=== PATIENT | female | born 1975 | race Caucasian/White ===

== ENCOUNTER 2025-09-12 06:19 | Day surgery (SDC) | payer OTHER, SELFPAY ==
--- NOTE | 2025-09-01 10:52 | PM.GYNHP.1 ---
History of Present Illness History of Present Illness Narrative: Ely Barber is a 49 year old female Date of procedure:?? 09-12-25 Preoperative diagnosis:? stress incontinence rectocele st 2, BMI 49, 290 # Planned Procedure:?? mid urethral sling, cystoscopy post colporrhaphy Postop Meds Tylenol 1000 mg, ?3 times a day? Motrin 400 mg 600 mg (under age 65 yr) ,? 3 times a day Oycodone 5 mg,? take 1 pill every 4-6 hr as needed, # 15? Colace,? 1 pill BID, for constipation CC: Prolapse and incontinence HPI: 49-year-old female who presents for evaluation of above complaint.?? She reports onset of symptoms 10 years ago.?? She considers this a? Moderate? problem. She has multiple medical issues, as well as obesity with BMI 49, multiple prior surgeries, prior hysterectomy, 2 prior C-sections 1. Prolapse Regarding the prolapse, she reports a bulge that she feels, reports it comes to the introitus. She reports that she has to splint against the vagina for bowel movements. She desires surgery for the prolapse. Exam with no cystocele, no vaginal vault prolapse, stage II distal rectocele. She does have a history of IBS with constipation. Given that she has had no prior vaginal deliveries, it is possible that the straining from the constipation caused the rectocele that was seen on exam. That is notable because it increases her recurrence risk because she might continue to still need to strain. Clearly the rectocele was not attributable to a vaginal delivery. 2. Mixed stress and urge incontinence She reports stress incontinence that occurs 1 to 2 times a day, with triggers as listed below. She also reports urge incontinence that occurs 1 to 2 times a day with triggers as below. Sometimes she gets large leaks from the urge incontinence. She uses 2-3 diapers in the day and 1 at night. These are typically wet. Voids every 1-2 hours in the daytime, 1-2 times at night, severe urgency. She has had no treatment for the stress incontinence other than doing Kegel's. For the urge incontinence she has tried and failed medications in the past. She had an InterStim placed in 2007. Presently it is not working well and she is in the process of having her urologist we place the InterStim. Exam below demonstrates positive cough stress test indicating diagnosis of stress incontinence. She desires surgery for the stress incontinence. She declines overactive bladder medications prior hyst -yes -0 c-sec -x2 Pelvic Floor Review of Systems: (HPI) Stress Urinary Incontinence symptoms (ELISABETH): 1-2 per day Triggers include: Sneeze, laugh, exercise, while ? Urge Incontinence symptoms (Urge UI): 1-2 per day Triggers include: Full bladder with urge, running water ? Pads: She wears 2-3 diapers in the day, 1 at night Overactive Bladder symptoms (OAB):? ? Frequency:?? Every 1-2 hours Nocturia:?? Times 1-2 Urgency:?? Severe Prior incontinence treatment includes:? Medical:? Meds tried in the past Surgical:? InterStim 2018, no treatment for stress incontinence Kegels:?? Yes Physical therapy:?No? Pessary:?No? Diet / Fluids: Fluid restriction:? No Excessive fluids:?No Pain symptoms:? Painful bladder:???No Dysuria:??? No Dyspareunia: Yes, history of endometriosis was the reason for the hysterectomy Dysmenorrhea:? No Urinary Risk Factors UTI?s, recurrent:? No Hematuria:? No Kidney Stones:?No? Tobacco use:? No Pelvic Organ Prolapse (POP) symptoms:?? Bulge:?Yes Pressure and /or? Heaviness:?Yes Splint for defecation or voiding:???Yes Voiding dysfunction: Abnormal stream:? No Strain to void:? No Incomplete emptying:?No Voiding difficulty:? No Retention:??? No Bowel Function: Constipation:?Yes Strain to defecate:?Yes Fiber:?No Laxatives:?Yes Fecal Incontinence:? Liquid stool:? No Solid stool:?No?? Sexual function Sexually active: Yes Incontinence with sex:? No ? General Review of Systems: Constitutional, CV, Endo, Musc-skel, Eyes, Cancer, Skin, Breast, GI, Heme/Lymph, Psych, Urinary, Neuro, Multilith Operator, Resp, Sexual:??? Pertinent positives listed above in HPI All others reviewed and negative. All reviewed on patient questionnaire.? . . [facility] Allergies, cephalosporins, she reports anaphylaxis Citalopram, hives, , rash metoprolol, Raynaud's Medical history Post surgical menopause GERD Hypothyroid Polycystic ovarian syndrome TMJ pain syndrome, bruxism Recurrent nosebleeds History of endometriosis in the upper left lobe of lung, resolved Depression Anxiety IBS with constipation predominant Medications Estradiol patch 0.05 mg per 24 hours progesterone 100 mg Thyroid replacement , 120 mg Sertraline 200 mg Wellbutrin 150 mg Gabapentin 300 mg pantoprazole 40 mg Vitamin D3 As needed medicines include cyclobenzaprine, hydroxyzine, lidocaine patch, ProAir inhaler, Afrin nasal spray, melatonin, lactulose Past surgical history Right wrist ganglion cyst Dahlgren teeth Bilateral breast reduction ,, readmitted later with blood clots Right foot cyst Tonsillectomy Laparoscopy confirming endometriosis , 2008 laparoscopic hysterectomy with oophorectomy, 2009 Thyroidectomy 2010 Nasal surgery 2014 InterStim placement 2018 Cholecystectomy, 2019 Exam Vitals 07/12/2514:23 Height 5 ft 4 in Weight 290 lb BMI 49.8 BP 140/64 Blood Pressure Location Lt brachial Position Sitting General: healthy, alert, coherent, no acute distress, cooperative, nontoxic Pulmonary: normal breathing, no distress Abdomen: soft, no mass, non-distended, no hernia, non-tender 5 ft 4 in, 290 lb, body mass index 49.8 Vulva: Normal labia majora, labia minora, introitus, and clitoris, non-tender Urethra meatus: normal, no discharge Perineum: Normal, non-tender Urethra: No mass, non-tender Bladder: no mass, non-tender Vagina: No lesions, no discharge, no atrophy, non-tender Prolapse -no cystocele, no vaginal vault prolapse, rectocele only notable on rectovaginal exam Levators: Non-tender, 1/ 5 kegel squeeze Hysterectomy Bimanual: no mass, no adnexal mass, non-tender Anus: No lesion, non-tender, no hemorrhoid Empty Cough Stress test: Neg PVR: 20 mL by catheter Urethral angle hypermobile: Yes, mild POP-Q Exam: Aa: -2 Ba: -2 Ap: -0.5 Bp: -0.5 C: -8 D: Not applicable TVL: 9 GH: 3 PB: 3 Introitus size: X2 fingerbreadths Cystocele stage: Stage I Rectocele stage: Stage II Uterine/Vault Prolapse Stage: Stage 0 After the exam, we had a return about 45 minutes later to do urodynamics, simple, as below. Verbal consent for the urodynamics obtained. Urethra prepped with Betadine. Bladder filled by placing a Stuart catheter connected to a 60 cc syringe, and then filling with sterile saline 60 cc at a time PVR was 50 cc First sensation, 40 cc First urge, 250 cc Strong urge, 350 cc Bladder capacity 420 cc Positive cough stress test at bladder capacity No evidence of detrusor instability Patient given Bactrim to take after the procedure Assessment & Plan (1) Rectocele: Status: Acute (2) Urge incontinence: Status: Acute (3) Stress incontinence, female: Assessment and Plan ? Patient counseled regarding above conditions.? Educational materials given to patient. 1. Pelvic Organ Prolapse - Stage 2 rectocele, no other prolapse.? This diagnosis and its etiology was discussed with the patient.? Treatment options were discussed including: expectant management, pessary trial, and surgical intervention. We briefly discussed risks and benefits of surgery. All surgery for prolapse is not 100% successful and there is a chance of recurrence or failure. She declines a Pessary Trial for Prolapse she desires surgery my recommendation = posterior colporrhaphy see below for counseling 2. Stress Urinary Incontinence with urethral hypermobility:? This diagnosis was discussed with the patient. The etiology was explained. Treatment options were discussed including expectant management, pelvic floor exercises, pessary trial, and surgical intervention (mid-urethral sling, Bird urethropexy, P-V sling, Deisy urethral plication, urethral bulking injection).? Risks and benefits of surgery were briefly outlined. Diagnosis confirmed on today's visit We discussed that she is a candidate for a Midurethral Sling as treatment of her stress incontinence. Success rate of being dry from stress incontinence is about 80-85%; another 10-15% of patients are markedly improved but not cured;? 1-2% will fail, and 1-2% will need the sling cut because it is too tight.? The risk of temporary urinary retention requeiring temporary catheterization is about 15-20%; risk of urinary retention requiring sling release procedure is about 1-2%, as noted above.? We discussed the small 1-3% of mesh erosion as well as the small risk of de kaycee urgency.? This procedure is not designed to treat Urge Incontinence symptoms; however, 30-50% of patients with overactive bladder/ urgency urinary incontinence will have improvement in these symptoms, in 30% these symptoms will stay the same, and in 20-30% these symptoms will worsen. She desires a sling see below for counseling 3. Overactive bladder and urge incontinence.?? This diagnosis and its etiology was discussed with the patient.? Treatment options were discussed including: Behavior changes ( Limit fluid intake, Avoiding fluid intake 3 hours before bedtime, Avoiding bladder irritants / follow bladder diet, Bladder training exercises), Kegel / pelvic floor muscle exercises,? OAB Medications, and procedures to include:? bladder botox A injections, Interstim, and PTNS.?? OAB handout given.? Kegel handout given She is currently in the process of trying to get her InterStim [place] OAB medication declined today. Reassess these symptoms after her surgery. 4. Surgery could be challenging due to body habitus. Obese, BMI 49 , 5 ft 4 in, 290 lb. Surgical Counselling Note Date of procedure:?? 09-12-25 Preoperative diagnosis:? stress incontinence rectocele st 2, BMI 49, 290 # Planned Procedure:?? mid urethral sling, cystoscopy post colporrhaphy Postop Meds Tylenol 1000 mg, ?3 times a day? Motrin 400 mg 600 mg (under age 65 yr) ,? 3 times a day Oycodone 5 mg,? take 1 pill every 4-6 hr as needed, # 15? Colace,? 1 pill BID, for constipation Patient counseled extensively about the Risks, Benefits, and Alternatives to surgery.? She was offered the opportunity to ask any questions, and all questions were answered. ? Surgical Risks include: Bleeding, Hemorrhage, Transfusion, Infection (especially wound or bladder), Injury to adjacent organs (especially bladder, ureter, bowel, blood vessels, nerves), Postop or Chronic Pain, need for Reoperation, and Life-threatening event (especially M.I., CVA, PE, DVT). Procedure Risks include: Failure to Cure condition, Recurrence of condition months or years later, Urinary incontinence, Voiding dysfunction or Urinary Retention with prolonged catheter use, Poor wound healing, Erosions of any mesh or graft used, Dyspareunia, Vaginal scarring or narrowing, Need for additional surgery (immediate or delayed).? The expected cure and improvement and failure rates were discussed. Patient counseled to avoid the following for 6 weeks after surgery: (1) Impact sports (like running or jumping), walking and stairs OK (2) Lifting over 20# (3) Sexual intercourse No limits after 6 weeks. ? Good exercise tolerance, > 4 Mets. Her current medications were reviewed, and instructions given over which to use and which to discontinue before surgery.? Post-operative care instructions reviewed.? We discussed post-operative pain: Pain should be in the mild-moderate range, but can be moderate-severe for the first few days.?? Prescriptions will typically be given for (1) acetaminophen (Tylenol) and (2) non-steroidal anti-inflammatory drug (NSAID, like Motrin or Naprosyn), use both together, around the clock. Prescription will also be given for a (3) narcotic pain medication. Use the narcotic as needed, as a booster to the Tylenol and NSAID. You might need 0-4 narcotic pills a day typically. The narcotic will only be needed for a few days.?? Gradually use less of the narcotic, but continue the Tylenol and NSAID.? After a few days, the narcotic should no longer be needed, and only the Tylenol and NSAID will be needed.? Warm packs or cold packs can also be used for pain.??Do not drive for as long as you are using the narcotic pain medication? - this should only be a few days.?? Constipation is associated with use of narcotic pain medications, and can be improved with use of a stool softener, or fiber, or a mild laxative.? If you are sent home from the hospital with a Stuart Catheter in place:? please call the office on the day after surgery We will usually remove the catheter 2-4 days after surgery: a. You will perform an at home Stuart catheter removal -or- b. You will come in to the office for a voiding trial, (For some unusual surgeries, we might leave the catheter in for up to 2 weeks, and then remove it.) Instructions for at home Stuart catheter removal..... For at-home Stuart catheter removal, this can be done on postop day 2 or 3 or 4, depending on various factors. 1. At 6 or 7 a.m., have the patient cut the Stuart catheter with scissors, while standing in a shower or bath tub. a. Cut the catheter right in the middle of the tubing, about 6 inches from the body. b. The sterile water that is inside the Stuart balloon will leak all over the floor of the shower or bath tub. This is expected. c. The catheter will either fall out of the urethra, or just gently pull on it and it will come out. 2. Now, the bladder will gradually fill up over the next few hours. 3. Go ahead and empty the bladder when you feel an urge to void. Please note how strong the urine stream is. a. If the urine stream is normal or close to normal, then everything is good to go. b. If the urine stream is slow or you can not void, then return to the clinic in the afternoon. We will place another Stuart catheter. We will repeat the voiding trial in 3-4 days. All of her questions were answered Honorio Sadler MD UroGynecology & Pelvic Reconstructive Surgery [facility] Medical History (Updated 09/01/25 @ 10:45 by Elsie Andersne RN) IBS (irritable bowel syndrome) Panic attacks History of PCOS Gastritis GERD (gastroesophageal reflux disease) Anxiety and depression Hypothyroid Stress incontinence, female Urge incontinence Rectocele Surgical History (Updated 09/01/25 @ 10:56 by Elsie Andersen RN) S/P cholecystectomy (07/2019) History of insertion of nerve stimulator (09/2018) History of bladder surgery (08/2018) H/O biopsy of soft tissue (07/2015) Hx of thyroidectomy (05/02/10) Hx of tonsillectomy (06/05/08) Hx of removal of cyst (04/2004) Hx of removal of cyst (04/1988) Hx of bilateral breast reduction surgery (03/1995) Hx of section Hx of hysterectomy (06/13/09) Meds Home Medications and Allergies Home Medications ?Medication ?Instructions ?Recorded ?Confirmed ?Type bupropion HCl 150 mg 24 hr tablet, 150 mg PO DAILY 10/09/25 10/09/25 History extended release ergocalciferol (vitamin D2) 1,250 1,250 mcg PO 09/01/25 History mcg (50,000 unit) capsule estradiol 0.05 mg/24 hr semiweekly 1 patch transdermal 2XW 09/01/25 09/01/25 History transdermal patch gabapentin 100 mg capsule 300 mg PO 09/01/25 History lactulose 10 gram/15 mL oral ml PO 09/01/25 History solution omeprazole 40 mg capsule,delayed 40 mg PO DAILY 09/01/25 09/01/25 History release progesterone micronized 100 mg 100 mg PO ONCE PM 09/01/25 09/01/25 History capsule sertraline 100 mg tablet 100 mg PO BID 09/01/25 09/01/25 History thyroid (pork) 120 mg tablet (LABORER DEMOLITION 120 mg PO QAM 09/01/25 09/01/25 History Thyroid) Allergies Allergy/AdvReac Type Severity Reaction Status Date / Time Cephalosporins Allergy Severe Anaphylaxis Verified 09/01/25 10:46 metoprolol Allergy Raynauds. Verified 09/01/25 10:46 acetaminophen (From Tylenol) AdvReac Nose Verified 09/01/25 10:48 bleeds. aspirin AdvReac Nose Verified 09/01/25 10:48 bleeds. celecoxib (From Celebrex) AdvReac Nose Verified 09/01/25 10:48 bleeds. citalopram AdvReac Rash/hives. Verified 09/01/25 10:46 NSAIDS (Non-Steroidal AdvReac Nose Verified 09/01/25 10:48 Anti-Inflamma bleeds. Assessment & Plan Time-Based Coding :: [TOTAL MINUTES] spent with patient and on the chart (including review of chart, obtaining history, exam, reviewing outside data, placing orders, documenting exam and treatment plan, and counseling patient) on [DATE].
[2025-09-01 11:53] VITALS: BMI 49.8
[2025-09-12] VITALS (12 sets, daily range): BP systolic 129–182; BP diastolic 60–84; PULSE 16–100; RESP 11–96; TEMP 36.1–36.5; O2SAT 90–97
[2025-09-12] MEDS: PHENAZOPYRIDINE 100 MG TABLET 200 MG PO (07:08)
[2025-09-12] MEDS: LACTATED RINGERS 1,000 ML 42 ML IV ×2 (07:08→09:37)
[2025-09-12] MEDS: ONDANSETRON 4 MG/2 ML INJ IV (07:09)
[2025-09-12] MEDS: CIPROFLOXACIN 400 MG/200 ML PIGGYBACK 200 MG IV (07:13)
--- NOTE | 2025-09-12 07:27 | PM.PREOP ---
Pre-operative Note Interval Note History & Physical reviewed/Exam performed by Physician: Yes Changes to H&P: No
[2025-09-12] MEDS: CLINDAMYCIN 900 MG/50 ML PIGGYBACK 50 MG IV (08:00)
--- NOTE | 2025-09-12 08:24 | SUR.OPER ---
Lithotomy on padded OR bed, torso on foam wedge, head on pillow and blanket, arms secured on padded arm boards at <90 degrees abduction. Safety strap to upper body. Legs secured in padded yellow fins stirrups.
[2025-09-12] MEDS: LIDOCAINE 1% W/EPI 10ML SUBCUT ×2 (08:35→09:24)
--- NOTE | 2025-09-12 10:02 | PM.GYNOP.1 ---
Operative Date/Time/Diagnoses Date of procedure: 09/12/25 Time of procedure: 08:00 Pre-op diagnosis: stress incontinence, rectocele Post-op diagnosis: same Procedure & Clinicians Procedure: Procedures Operation Date: 09/12/25 07:45 Actual Procedure Side Surgeon p sling, Not Applicable Honorio Sadler MD s Posterior Colporrhaphy, cystoscopy Not Applicable Honorio Sadler MD Operative Notes Findings: Operative Note Surgeon:? Honorio Sadler MD Supervisor Offset Plate Preparation:?? Pre-Op Diagnosis:?? stress incontinence, rectocele Post-Op Diagnosis:?? Procedure: Mid urethral sling, cystoscopy Posterior colporrhaphy Findings (brief): 1. Desara retropubic sling placed at the mid urethra, tension-free 2. Cystoscopy with normal bladder, urethra, bilateral ureteral jets, no trocar injury 3. Posterior colporrhaphy in usual fashion, 6 interrupted sutures of 2-0 Vicryl. Only about 3 mm of redundant tissue excised each side. 4. Stage II A rectocele that was notable only on rectovaginal exam. Normal vaginal caliber and depth, not enlarged as is typical, she has no prior vaginal deliveries. 290 lb. Difficult exposure. Good repair. Date of Surgery:? September 12, 2025 Complications:? None Specimens:? None Anesthesia Technique: General endotracheal Estimated Blood Loss (mls):? 200 Blood Replacement (mls):? No Drains:? Stuart catheter Condition:? Stable Procedure in detail: After consent was confirmed, the patient was taken to the operating room and placed under general anesthesia without incident.? Sequential compression devices were in place and active.? She received perioperative antibiotics.? She was then prepped and draped in the usual sterile fashion after placement in the dorsal lithotomy position using the Adan stirrups.? A Stuart catheter was placed.? With the Stuart catheter in place, the anterior vaginal mucosa beneath and lateral to the urethra was injected with 20 cc of? 0.5% lidocaine / epinephrine 1:200,000.? A 3 cm midline incision was made at the level of the midurethra with a scapel. Metzenbaum scissors were used to dissect the vagina from the urethra and then create tunnels beneath the vaginal mucosa up toward the pubic bone on each side.? A marking pen was used to farida the skin just above the pubic bone and 2 cm from the midline bilaterally, and two small 8-10 mm incisions were made on the suprapubic skin.? The trocar was passed from the right vaginal tunnel, behind the pubic bone, to the right suprapubic incision, and this was repeated on the left side.? The Stuart catheter was removed, and cystoscopy was performed with a 70 degree lens. There was no trocar injury, and the bladder, ureters, and urethra were normal.? The Stuart catheter was reinserted.? The sling was pulled into position in a tension-free manner, and a Deisy clamp was easily passed between the sling and the urethra.? The plastic sheaths were removed to anchor the sling, and tension was checked again. The ends of the sling were trimmed just below the skin, and the skin incisions were cleaned and closed with dermabond. The vaginal incision was closed with 2-0 vicryl in a running fashion. ? Attention was then turned to the posterior vaginal wall. The posterior vaginal mucosa was grasped with Allis clamps and was injected with 20 cc of 0.5% lidocaine / epinephrine 1:200,000.? A midline incision was made with the scalpel continued up the posterior vaginal mucosa with the Metzenbaum scissors. The vaginal mucosa was dissected off of the underlying rectovaginal fascia / rectum until the side freeman were reached.?? The posterior vaginal levators were plicated with 6 horizontal mattress sutures of 2-0 vicryl.? A rectal exam was performed during the placement of the sutures to avoid rectal injury.? No sutures were noted in the rectum at the end of the procedure.? Excess posterior vaginal mucosa was trimmed and the incision was closed with 2-0 vicryl.? A perineorrhaphy was not needed. Hemostasis was noted. Sponge, needle and instrument count was correct.? The patient tolerated the procedure well and was taken to the recovery room in stable condition. Honorio Sadler MD UroGynecology & Pelvic Reconstructive Surgery [place], [place] Applied: device(s) (mesh sling )
--- NOTE | 2025-09-12 10:38 | SUR.PHASEI ---
Spoke with Dr Sadler. Clarified vag packing order: DC bag packing today at time of voiding trial. See Communication order
== END 2025-09-12 11:55 | disposition home or self-care (01) ==
PROVIDERS: PCP Nurse Practitioner Family; Referring Provider Nurse Practitioner Family; Visit Provider Obstetrics & Gynecology Gynecology
PROC: 0TSD0ZZ Reposition Urethra, Open Approach (ICD-10-PCS; CPT 57288; principal; 2025-09-12 07:45)
PROC: (CPT 57288; 2025-09-12 07:45)
DX: N39.46 Mixed incontinence (principal); N81.6 Rectocele; E66.9 Obesity, unspecified; Z68.42 Body mass index [BMI] 45.0-49.9, adult; N32.81 Overactive bladder
CPT/HCPCS: 57288; 57250; 36415; C1771; J0330; J0744; J1100; J1171; J2250; J2405; J2704; J3010; J3490; J7120